=== PATIENT | female | born 1940 | race Caucasian/White ===

== ENCOUNTER 2017-11-12 15:36 | Emergency (ER) | payer MEDICARE, OTHER ==
[~2017-11-12] VITALS: Ht 160 cm; Wt 88.9 kg
[~2017-11-12 15:36] MED LIST: AMARYL4 MG PO; B-121000 MCG PO; DIPHENOXYLATE-1 EACH PO; EXFORGE 10-3201 EACH PO; LEVOTHYROXINE50 MCG PO; LIPITOR10 MG PO; METFORMIN HCL500 MG PO; PRILOSEC; PRILOSEC40 MG PO; PROMETHAZINE HC25 M1 PO; WELLBUTRIN XL300 MG PO; [UNRECOGNIZED DRUG - OTHER] PO
--- NOTE | 2017-11-12 16:27 | Diagnostic Imaging Report ---
Examination: CT BRAIN WITHOUT CONTRAST History:Dizziness. Right-sided numbness. Comparison studies:None Technique: Axial images were obtained from the skull base to the vertex. Coronal and sagittal images reconstructed from the axial data. Intravenous contrast: None Findings: Scalp: No abnormalities. Bones: No fractures, blastic or lytic lesions. Brain sulci: Appropriate for age. Ventricles: Normal in size and configuration. No hydrocephalus. Extra-axial space: No abnormalities. Parenchyma: There are mild confluent areas of hypoattenuation in the periventricular white matter, nonspecific. No masses, hemorrhage, or acute or chronic cortical based vascular insults. Sellar/suprasellar region: No abnormalities. Craniocervical junction: Patent foramen magnum. No Chiari one malformation. Incidental findings: Atherosclerotic calcification of the cavernous and supraclinoid internal carotid arteries. Impression: 1. No acute intracranial abnormalities. 2. Mild chronic microvascular ischemic change. Signed by: Dr. Magalys Arthur M.D. on 11/12/2017 4:24 PM
--- NOTE | 2017-11-12 16:28 | Diagnostic Imaging Report ---
PROCEDURE: Frontal and lateral views of the chest. COMPARISON: CT, CT ABDOMEN/PELVIS WO, 01/13/2015, 3:13. Patients [facility], DX, CHEST 2 VIEWS, 06/24/2013, 17:16. INDICATIONS: WEAKNESS FINDINGS: Lines/tubes: None. Lungs: The lungs are well inflated. Stable 1.1 cm calcified granuloma in the right lower lobe. Stable calcification of the mitral annulus. There is no evidence of pneumonia or pulmonary edema. Pleura: There is no pleural effusion or pneumothorax. Heart and mediastinum: Cardiac silhouette is unremarkable. Pulmonary vasculature is normal. Atherosclerotic calcification of the aorta. Bones: No acute bony abnormality. IMPRESSION: 1. No acute cardiopulmonary abnormalities. Jm Dorman M.D. Dictated by: Jm Dorman M.D. on 11/12/2017 at 16:27 Electronically approved by: Jm Dorman M.D. on 11/12/2017 at 16:27
== END 2017-11-12 21:41 | disposition home or self-care (01) ==
LOC: ER 15:51
DX: H81.392 Other peripheral vertigo, left ear (principal); H81.22 Vestibular neuronitis, left ear; H66.92 Otitis media, unspecified, left ear; H72.92 Unspecified perforation of tympanic membrane, left ear; E11.9 Type 2 diabetes mellitus without complications; I10 Essential (primary) hypertension; Z88.8 Allergy status to other drugs, medicaments and biological substances; Z91.048 Other nonmedicinal substance allergy status
CPT/HCPCS: 70450; 71046; 99284